=== PATIENT | male | born 1990 | race Caucasian/White ===

== ENCOUNTER 2016-11-03 04:14 | Emergency (ER) | payer BC ==
[2016-11-03 04:38] VITALS: BP 134/87
--- NOTE | 2016-11-03 05:41 | EDM.PDOC ---
ED HISTORY OF PRESENT ILLNESS - General Chief Complaint: Respiratory Problem Stated Complaint: SORE THROAT Time Seen by Provider: 11/03/16 04:59 Source of Information: Reports: Patient, RN notes reviewed History Limitations: Reports: No limitations - History of Present Illness INITIAL COMMENTS - FREE TEXT/NARRATIVE: The patient states that he has had a dry cough on and off since this past fall. He reports a sore chest when he coughs this morning. He has not tried any home medications. No recent fever, nausea, vomiting, constipation, diarrhea, or urinary symptoms. The patient did not receive an influenza vaccine this season. He does not have a PCP. - Related Data Allergies/ADRs: Allergies Allergy/AdvReac Type Severity Reaction Status Date / Time No Known Allergies Allergy Verified 11/03/16 04:24 Home Meds: Home Meds . [No Known Home Meds] 11/03/16 [History] Past Medical History - Past Health History Medical/Surgical History: Denies Medical/Surgical History Social & Family History - Tobacco Use Smoking Status *Q: Never Smoker Second Hand Smoke Exposure: No - Caffeine Use Caffeine Use: Reports: Soda - Alcohol Use Alcohol Use History: Yes Alcohol Use Frequency: Socially - Recreational Drug Use Recreational Drug Use: No - Living Situation & Occupation Living situation: Reports: single, alone Occupation: employed ([employer]) ED ROS GENERAL - Review of Systems Review Of Systems: See Below Constitutional: Reports: no symptoms HEENT: Reports: No symptoms Respiratory: Reports: Cough (as per the HPI). Denies: Sputum Cardiovascular: Reports: No symptoms Endocrine: Reports: no symptoms GI/Abdominal: Reports: No symptoms : Reports: no symptoms Musculoskeletal: Reports: no symptoms Skin: Reports: no symptoms Neurological: Reports: No Symptoms Psychiatric: Reports: No symptoms Hematologic/Lymphatic: Reports: no symptoms Immunologic: Reports: no symptoms ED EXAM, GENERAL - Physical Exam Exam: See Below Exam Limited By: No limitations General Appearance: alert, WD/WN, no apparent distress Eye Exam: bilateral eye: EOMI, normal inspection Ears: normal external exam, normal canal, hearing grossly normal, normal TMs Ear Exam: bilateral ear: auricle normal, canal normal, TM normal Nose: normal inspection, normal mucosa, no blood Throat/Mouth: Normal inspection, Normal lips, Normal teeth, Normal gums, Normal oropharynx, Normal voice, No airway compromise Head: atraumatic, normocephalic Neck: normal inspection, supple, non-tender, full range of motion Respiratory/Chest: no respiratory distress, lungs clear, normal breath sounds, no accessory muscle use, chest non-tender Cardiovascular: normal peripheral pulses, regular rate, rhythm, no edema, no gallop, no JVD, no murmur, no rub Peripheral Pulses: 4+: radial (L), radial (R) GI/Abdominal: normal bowel sounds, soft, non tender, no organomegaly, no distention, no abnormal bruit, no mass Back Exam: normal inspection, full range of motion Extremities: normal inspection, normal range of motion, normal capillary refill Neurological: alert, oriented, normal cognition, no motor/sensory deficits Psychiatric: normal affect Skin Exam: Warm, Dry, Intact, Normal color, No rash Lymphatic: no adenopathy Course - Vital Signs Last Recorded V/S: Last Vital Signs Temp 36.1 C 11/03/16 04:20 Pulse 84 11/03/16 04:20 Resp 20 11/03/16 04:20 BP 134/87 11/03/16 04:20 Pulse Ox 100 11/03/16 04:20 - Orders/Labs/Meds Labs: Laboratory Tests 11/03/16 11/03/16 Range/Units 05:05 05:27 WBC 10.29 H (4.23-9.07) K/mm3 RBC 5.17 (4.63-6.08) M/mm3 Hgb 15.5 (13.7-17.5) gm/L Hct 45.2 (40.1-51.0) % MCV 87.4 (79.0-92.2) fl MCH 30.0 (25.7-32.2) pg MCHC 34.3 (32.2-35.5) g/dl RDW Std Deviation 41.9 (35.1-43.9) fL Plt Count 139 L (163-337) K/mm3 MPV 10.8 (9.4-12.3) fl Neutrophils % (Manual) 78 H (40-60) % Band Neutrophils % 1 (0-10) % Lymphocytes % (Manual) 15 L (20-40) % Atypical Lymphs % 0 % Monocytes % (Manual) 2 (2-10) % Eosinophils % (Manual) 4 (0.8-7.0) % Basophils % (Manual) 0 L (0.2-1.2) Platelet Estimate Adequate RBC Morph Comment Normal C-Reactive Protein < 0.2 (<1.0) mg/dL - Radiology Interpretation Free Text/Narrative:: Two-view chest radiograph appears to be grossly normal. Cardiac silhouette is within normal limits. No pulmonary vascular congestion. No pleural effusions. No focal infiltrate. No pneumothorax. Formal read per the Radiologist pending. - Re-Assessments/Exams Free Text/Narrative Re-Assessment/Exam: 11/03/16 06:53 Test results discussed with the patient. Today's workup is entirely unremarkable. I suspect that the patient may have allergic rhinitis with postnasal drip as a cause of his cough. His chest pain appears to be musculoskeletal in etiology. I am going to suggest to the patient that he try a nasal steroid spray. Departure - Departure Time of Disposition: 06:54 Disposition: Home, Self-Care 01 Condition: good Clinical Impression: Cough Instructions: Cough, Adult, [id number] Referrals: PCP,None [Primary Care Provider] - Forms: ED Department Discharge Additional Instructions: You were seen in the emergency room this morning for a dry cough for the past 4 months, and a sore chest when you cough. Workup in the ER included blood work, a chest x-ray, and a strep test. Your entire workup was normal. You do not have pneumonia or bronchitis. You do not have strep throat. We suspect that you have allergic rhinitis, also known as seasonal allergies, as the cause of your cough. Your chest pain appears to be due to sore muscles from coughing. We suggest you try using an [id number] nasal saline spray, to see if that helps with your cough. If any other problems, please do not hesitate to return to the ER.
--- NOTE | 2016-11-03 10:30 | CR ---
Chest: Two views of the chest were obtained. Comparison: No previous chest x-ray. Heart size and mediastinum are normal. Lungs are clear. Bony structures are unremarkable for the patient's age. Impression: 1. Nothing acute is identified on two-view chest x-ray. Diagnostic code #1
== END 2016-11-03 07:05 | disposition home or self-care (01) ==
LOC: JD.ED 04:14
DX: R05 Cough (principal)
CPT/HCPCS: 36415; 71020; 71020-26; 85025; 86140; 87081; 87430; 99282; 99284

== ENCOUNTER 2023-03-29 21:24 | Emergency (ER) | payer OTHER, BC ==
[2023-03-29 21:43] LABS: BASOPHILS ABSOLUTE AUTO 0.07 K/mm3 (0.01-0.08); BASOPHILS PERCENT AUTO 0.9 % (0.1-1.2); EOSINOPHILS ABSOLUTE AUTO 0.21 K/mm3 (0.04-0.54); EOSINOPHILS PERCENT AUTO 2.6 (0.8-7.0); HEMATOCRIT 49.4 % (40.1-51.0); HEMOGLOBIN 16.3 gm/dl (13.7-17.5); IMMATURE GRAN ABSOLUTE AUTO 0.02 K/mm3 (0.00-0.10); IMMATURE GRAN PERCENT AUTO 0.3 % (<=1.0); LYMPHOCYTES ABSOLUTE AUTO 2.18 K/mm3 (1.32-3.57); LYMPHOCYTES PERCENT AUTO 27.3 % (21.8-53.1); MEAN CORPUSCULAR HEMOGLOBIN 29.7 pg (25.7-32.2); MEAN CORPUSCULAR VOLUME 90.1 fl (79.0-92.2); MEAN PLATELET VOLUME 10.3 fl (9.4-12.3); MONOCYTES PERCENT AUTO 6.3 % (5.3-12.2); NEUTROPHILS ABSOLUTE AUTO 5.01 K/mm3 (1.78-5.38); NEUTROPHILS PERCENT AUTO 62.6 % (34.0-67.9); PLATELET COUNT,PLT 231 K/mm3 (163-337); RED BLOOD CELL COUNT 5.48 M/mm3 (4.63-6.08); WHITE BLOOD CELL COUNT,WBC 7.99 K/mm3 (4.23-9.07)
[2023-03-29] MEDS ORDERED: Dextrose 5%-0.9% NaCl 1,000 ML IV SCH (21:45)
[2023-03-29 21:54] LABS: A/G RATIO 1.1 (1-2); ALANINE AMINOTRANSFERASE,ALT 48 U/L (16-63); ALKALINE PHOSPHATASE 68 U/L (46-116); ASPARTATE AMNIOTRANSFERASE,AST 27 U/L (15-37); BILIRUBIN TOTAL 0.2 mg/dL (0.2-1.0); BLOOD UREA NITROGEN,BUN 18 mg/dL (7-18); BUN/CREATININE RATIO 13.8 (14-18); CALCIUM 9.1 mg/dL (8.5-10.1); CARBON DIOXIDE,CO2 30 mEq/L (21-32); CHLORIDE,CL 103 mEq/L (98-107); CREATININE 1.3 mg/dL (0.7-1.3); ESTIMATED GFR 76 mL/min (>60); GLUCOSE RANDOM 148 mg/dL (70-99); LIPASE 68 U/L (73-393); PROTEIN TOTAL,TP 7.5 g/dl (6.4-8.2); SODIUM,NA 141 mEq/L (136-145)
[2023-03-29] MEDS ORDERED: Iopamidol 612 MG/ML 100 ML Bottle IVPUSH ONE (22:06)
[2023-03-30 03:20] VITALS: BP 154/96; PULSE 70
== END 2023-03-29 22:50 | disposition home or self-care (01) ==
LOC: JD.ED 21:24
DX: S06.0X9A Concussion with loss of consciousness of unspecified duration, initial encounter (principal); S02.2XXA Fracture of nasal bones, initial encounter for closed fracture; S00.531A Contusion of lip, initial encounter; S80.212A Abrasion, left knee, initial encounter; V89.2XXA Person injured in unspecified motor-vehicle accident, traffic, initial encounter; Y92.410 Unspecified street and highway as the place of occurrence of the external cause
CPT/HCPCS: 36415; 70450; 70486; 71260; 72125; 74177; 80053; 80307; 83690; 85025; 86850; 86900; 86901; 99285; Q9967; 99284